=== PATIENT | male | born 1960 | race Caucasian/White ===

== ENCOUNTER 2023-04-13 09:28 | Outpatient (OUT) | payer BC, SELFPAY ==
[2023-04-13 10:06] LABS: Basophils Percent Auto 0.5 % (0.2-2.0); Eosinophils Absolute Auto 0.3 10^3/uL (0.0-0.7); Hematocrit 49.8 % (42.0-54.0); Hemoglobin 16.7 g/dL (14.0-18.0); Immature Granulocytes Abs Auto 0.06 10^3/uL (0.00-0.03); Immature Granulocytes Pct Auto 0.8 % (0.0-0.5); Lymphocytes Absolute Auto 2.9 10^3/uL (1.2-3.8); Lymphocytes Percent Auto 37.9 % (20.5-60.0); Mean Corpuscular HGB Conc 33.5 g/dL (29.9-35.2); Mean Corpuscular Hemoglobin 31.9 pg (25.9-34.0); Mean Platelet Volume 9.7 fL (9.5-13.5); Monocytes Absolute Auto 0.7 10^3/uL (0.3-0.8); Neutrophils Absolute Auto 3.6 10^3/uL (1.4-6.5); Neutrophils Percent Auto 47.8 % (43.0-75.0); Platelet Count 228 10^3/uL (150-450); Red Blood Count 5.24 10^6/uL (4.70-6.10); Red Cell Distribution Width 12.3 % (11.0-15.0); White Blood Count 7.5 10^3/uL (4.0-11.0)
[2023-04-13 11:06] LABS: Alanine Aminotransferase 47 U/L (16-63); Albumin Globulin Ratio 1.1; Albumin Level 3.9 g/dL (3.4-5.0); Alkaline Phosphatase 86 U/L (46-116); Anion Gap 13.9; Aspartate Amino Transferase 23 U/L (15-37); Bilirubin Total 1.4 mg/dL (0.2-1.0); Calcium 8.9 mg/dL (8.5-10.1); Carbon Dioxide 28.4 mmol/L (21.0-32.0); Chloride 104 mmol/L (98-107); Chol HDL Ratio 4.6; Cholesterol 208 mg/dL (<=200); Estimated GFR (African America >60 (>=60); Estimated GFR (Non-African Ame >60 (>=60); Free T3 3.24 pg/mL (2.18-3.98); Globulin 3.5 g/dL; Glucose 96 mg/dL (74-106); HDL Cholesterol 45 mg/dL (40-60); Potassium 4.3 mmol/L (3.5-5.1); Prostate Specific Antigen Scrn 1.11 ng/mL (<=4.00); Sodium 142 mmol/L (136-145); Thyroid Stimulating Hormone 2.702 uIU/mL (0.358-3.740); Total Protein 7.4 g/dL (6.4-8.2); Triglycerides 95 mg/dL (<=150)
[2023-04-13 11:19] LABS: Estimated Average Glucose 111 mg/dL; Glycohemoglobin A1C 5.5 % (4.5-6.2)
== END 2023-04-13 09:29 | disposition home or self-care (01) ==
PROVIDERS: PCP Family Medicine; Visit Provider Family Medicine
DX: Z00.00 Encounter for general adult medical examination without abnormal findings (principal); E78.5 Hyperlipidemia, unspecified; R73.09 Other abnormal glucose; Z12.5 Encounter for screening for malignant neoplasm of prostate
CPT/HCPCS: 36415; 80053; 80061; 83036; 84436; 84443; 84481; 85025; G0103

== ENCOUNTER 2023-05-03 12:35 | Outpatient (OUT) | payer BC, SELFPAY ==
--- OUTSIDE RECORDS SUMMARY | 2023-05-03 12:49 | XMS_ITS | CCD ---
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 Instructions DISCHARGE INSTRUCTIONS FOR ENDOSCOPY FOR COLONOSCOPY: -Expect a gassy or full feeling after a colonoscopy. Report any NEW abdominal pain or vomiting. FOR MARCIAL/EGD/ERCP/PEG: -Your throat may feel sore today from the scope that the doctor passed through your throat to visualize your stomach. Take a throat lozenge or suck on ice to ease the discomfort. -Do NOT smoke. FOR SEDATION FOR 24 HOURS: -NO driving -Do NOT operate machinery such as power tools, lawn mowers, snow blowers, sewing machines, etc. -Avoid alcoholic beverages and drugs for allergies, nerves, or sleep. -Do NOT stay alone. Do NOT leave your child unattended. -Do NOT make important personal or business decisions or sign any legal documents. -Eat solid foods and drink liquids in smaller amounts than usual until normal appetite returns. If you should experience an upset stomach, liquids high in sugar content (soda, Dmitry-aid, non-acid juices) are recommended. -You can resume normal activities tomorrow. FOLLOW UP Please call the office and make a follow up appointment to see me in 3 to 6 months Repeat colonoscopy in 10 years Pantoprazole 40 mg p.o. every morning -Notify the doctor if you have any problems. -Office number [phone] [facility] Work Phone: Summary Purpose Family History No Family History Records Found Relationship Condition Age at Onset Recorded Date/T bari Not Specified No pertinent family history Unknown Advance Directives No Advanced Directives Records Found Advance Directive Response Recorded Date/ Time Advance Directives No November 3:29pm Chief Complaint and Reason for Visit Chief Complaint GERD, Screening Reason for Visit GERD (gastroesophage al reflux disease) Additional Source Comments (unrecognized sect ion and content) No Status Records FoundNo Status Records FoundNo Status Records Found INFORMATION SOURCE (unrecogn ized section and content) DATE CREATED AUTHOR 06/28/2018 [facility] DATE CREATED AUTHOR AUTHOR'S ORGANIZ ATION 12/31/2021 [facility] DATE CREATED AUTHOR AUTHOR'S ORGANIZ ATION 05/05/2022 [facility] Care Teams (unrecognized sec tion and content) Team Status: Inactive Member Role Status Dates Jacque Antonio MD Primary Care Provider Active Skyler De La Torre MD Attending Provider Active Team Status: Active Member Role Status Dates Jacque Antonio MD Primary Care Provider Active FOR RECORDS PERTAINING TO PATIENTS WHO ARE OR HAVE BEEN ENROLLED IN A CHEMICAL DEPENDENCY/SUBSTANCEABUSE PROGRAM, SOME INFORMATION MAY BE OMITTED. This clinical summary was aggregated from multiple sources. Caution should be exercised in using it in the provision of clinical care. This summary normalizes information from multiple sources, and as a consequence, information in this document may materially change the coding, format and clinical context of patient data. In addition, data may be omitted in some cases. CLINICAL DECISIONS SHOULD BE BASED ON THE PRIMARY CLINICAL RECORDS. [employer] provides no warranty or guarantee of the accuracy or completeness of information in this document.
--- NOTE | 2023-05-03 13:28 | XR_ITS ---
The [address] [address] Patient Name: DOMINIC HERR MRN: [id number] date: 1960 Sex: M Assigned Patient Location: CARD Current Patient Location: CARD Accession/Order Number: [id number] Exam Date: 05/03/2023 13:30 Report Date: 05/03/2023 13:52 At the request of: JACQUE WINSTON Procedure: XR chest 2V EXAM: XR chest 2V HISTORY: Shortness Of Breath COMPARISON: None. TECHNIQUE: PA and lateral views of the chest. FINDINGS: The cardiomediastinal silhouette is normal. No focal consolidation is identified. There is no pneumothorax. No pleural effusion is noted. The osseous structures are intact. XR/XR chest 2V IMPRESSION: No acute cardiopulmonary process. Electronically authenticated by: CONSUELO ROLAND Date: 05/03/2023 13:52
--- NOTE | 2023-05-03 13:30 | RT_ITS ---
The [facility] Test Date: 2023-05-03 Pat Name: DOMINIC HERR Department: Room: - Gender: Male Tool Procurement Coordinator: Willis Montana RRT : 1960 Requested By: JACQUE WINSTON Order Number: [id number] Reading MD: Gurmeet Stein Interpretive Statements Pulmonary function testing was completed according to ATS criteria. Findings were considered accurate and reproducible. No bronchodilator was administered due to normal spirometric values. Spirometry: -FEV1/FVC: Normal @ 78% -FEV1: Normal @ 91% -FVC: Normal @ 89% Lung volumes by plethysmography: -RV: Reduced @ 64% -TLC: Normal @ 86% Diffusion capacity: -DLCO: Normal @ 92% when corrected for Hb 16.7g/dL Flow-volume loop: -Normal shape Impressions: -Technically normal PFT. If asthma remains in the differential, may consider methacholine challenge testing. Clinical correlation required. Electronically Signed On 05-08-2023 7:10:08 EST by Gurmeet Stein
== END 2023-05-03 12:36 | disposition home or self-care (01) ==
LOC: CARD 12:36
PROVIDERS: PCP Family Medicine; Visit Provider Family Medicine
DX: R06.02 Shortness of breath (principal)
CPT/HCPCS: 71046; 94010; 94726; 94729

== ENCOUNTER 2023-05-12 17:55 | Emergency (ER) | payer BC, SELFPAY ==
[2023-05-12] VITALS (8 sets, daily range): BP systolic 151–156; BP diastolic 83–95; PULSE 54–63; RESP 18–22; TEMP 36.6; O2SAT 92–96; BMI 29.0
--- OUTSIDE RECORDS SUMMARY | 2023-05-12 18:02 | XMS_ITS | CCD ---
Author Name Unknown Address [address] [facility] [address] [place] [address] Organization [facility] Care Team Providers Care Business Management Manager Name Role Phone PHYSICIAN, DEFAULT Admitting Unavailable [...] Unavailable MD Jacque Antonio Primary Care Provider [phone] MD Skyler De La Torre Attending Provider [...] Test Name Value Interpretation Reference Range Facility [facility] 04-27-2022 L ---- Specimen: [id number] Received: 04/27/22 Status: MIKIE Schmidosmar Num: [id number] Spec Type: Surgical Subm Dr: Skyler De La Torre MD Tissues: A Stomach - Biopsy/Polyp (ANTRAL BX) B Esophagus Biopsy (ESOPHAGEAL EROSION BX) Procedures: HE/4, Gross/Micro L4/2, GMS II Dark, AE1-AE3, H PYLORI Age/ Patient Sex Location Account Attending Physician TayoDominic Roshan 61/M [id number] Skyler De La Torre MD SPEC NUM: [id number] RECD: 04/27/22 STATUS: MIKIE VALDEZ NUM: [id number] ELGIN: 04/27/22- [facility] DR: Skyler De La Torre MD ENTERED: 04/27/[address] [facility] [address]: BULMARO TYPE: Surgical DEPT: S ORDERED: [...] submitted in one cassette labeled B1. Specimen: [id number] Received: 04/27/22 Status: MIKIE Valdez Num: [id number] Spec Type: Surgical Subm Dr: Skyler De La Torre MD Tissues: A Stomach - Biopsy/Polyp (ANTRAL BX) B Esophagus Biopsy (ESOPHAGEAL EROSION BX) Procedures: HE/4, Gross/Micro L4/2, GMS II Dark, AE1-AE3, H PYLORI Patient: rosendoDominic huffman [id number] (Continued) Specimen: [id number] Received: 04/27/22 (Continued) Signed (signature on file) Paula_ Willard Jain MD 05/01/22 1140 Specimen: [id number] Received: 04/27/22 Status: MIKIE Valdez Num: [id number] Spec Type: Surgical Subm Dr: Skyler De La Torre MD Tissues: A Stomach - Biopsy/Polyp (ANTRAL BX) B Esophagus Biopsy (ESOPHAGEAL EROSION BX) Procedures: HE/4, Gross/Micro L4/2, GMS II Dark, AE1-AE3, H PYLORI Patient: MarielosdanielDominic [id number] (Continued) Specimen: [id number] Received: 04/27/22 (Continued) Microscopic Description A. Two [...] characteristics were determined by the Laboratory of [facility]. Immunohistochemistry assays have not been validated on decalcified tissue. Results should be interpreted with caution given the possibility of false negative results on decalcified specimens. They have not been cleared by the US Food and Drug Administration. The FDA has determined that such clearance or approval is not necessary. CPT Codes 25087?2 (more content not included)... Normal [facility] INSULINon 12-28-2021 Insulin 18.0 uIU/mL Normal 2.6-24.9 [facility] Comment on above: Performed By: #### I NSULIN #### [facility] [address] [place] [address] Dr. Joesph Gaspar CBC AUTO DIFFon 12-27-2021 BASO # 0.1 103/ul Normal 0.0-0.1 [facility] Comment on above: Performed By: #### C BC #### [facility] [address] [place] [address] Dr. Joesph Gaspar Basophils/100 WBC (Bld) 0.7 % Normal 0.2-2.0 [facility] Comment on above: Performed By: #### C BC #### [facility] [address] [place] [address] Dr. Jeosph Gaspar EO # 0.2 103/ul Normal 0.0-0.7 [facility] Comment on above: Performed By: #### C BC #### [facility] [address] [place] [address] Dr. Joesph Gaspar Eosinophils/100 WBC (Bld) 3.3 % Normal 0.9-7.0 [facility] Comment on above: Performed By: #### C BC #### [facility] [address] [place] [address] Dr. Joesph Gaspar Erythrocyte distribution width (RBC) [Ratio] 12.2 % Normal 11.0-15.0 [facility] Comment on above: Performed By: #### C BC #### [facility] [address] [place] [address] Dr. Joesph Gaspar Hematocrit (Bld) [Volume fraction] 48.1 % Normal 42.0-54.0 [facility] Comment on above: Performed By: #### C BC #### [facility] [address] [place] [address] Dr. Joesph Gaspar Hemoglobin (Bld) [Mass/Vol] 16.6 g/dL Normal 14.0-18.0 [facility] Comment on above: Performed By: #### C BC #### [facility] [address] [place] [address] Dr. Joesph Gaspar IG # 0.02 10e3/ul Normal 0.00-0.03 [facility] Comment on above: Performed By: #### C BC #### [facility] [address] [place] [address] Dr. Joesph Gaspar IG % 0.3 % Normal 0.0-0.5 [facility] Comment on above: Performed By: #### C BC #### [facility] [address] [place] [address] Dr. Joesph Gaspar LYMPH # 2.3 103/ul Normal 1.2-3.8 [facility] Comment on above: Performed By: #### C BC #### [facility] [address] [place] [address] Dr. Joesph Gaspar Lymphocytes/100 WBC (Bld) 33.2 % Normal 20.5-60.0 [facility] Comment on above: Performed By: #### C BC #### [facility] [address] [place] [address] Dr. Joesph Gaspar MANUAL DIFF REQ NO Normal [facility] Comment on above: Performed By: #### C BC #### [facility] [address] [address] [address] Joesph Gaspar MCH (RBC) [Entitic mass] 32.4 pg Normal 25.9-34.0 [facility] Comment on above: Performed By: #### C BC #### [facility] [address] [place] [address] Dr. Joesph Gaspar MCHC (RBC) [Mass/Vol] 34.5 g/dL Normal 29.9-35.2 [facility] Comment on above: Performed By: #### C BC #### [facility] [address] [place] [address] Dr. Joesph Gaspar MCV (RBC) [Entitic vol] 93.8 fL Normal 80.0-94.0 [facility] Comment on above: Performed By: #### C BC #### [facility] [address] [place] [address] Dr. Joesph Gaspar MONO # 0.6 103/ul Normal 0.3-0.8 [facility] Comment on above: Performed By: #### C BC #### [facility] [address] [place] [address] Dr. Joesph Gaspar Monocytes/100 WBC (Bld) 8.4 % Normal 1.7-12.0 [facility] Comment on above: Performed By: #### C BC #### [facility] [address] [place] [address] Dr. Joesph Gaspar NEUT # 3.8 103/ul Normal 1.4-6.5 [facility] Comment on above: Performed By: #### C BC #### [facility] [address] [place] [address] Dr. Joesph Gaspar Neutrophils/100 WBC (Bld) 54.1 % Normal 43.0-75.0 [facility] Comment on above: Performed By: #### C BC #### [facility] [address] [place] [address] Dr. Joesph Gaspar Platelet mean volume (Bld) [Entitic vol] 9.1 fL Critically low 9.5-13.5 [facility] Comment on above: Performed By: #### C BC #### [facility] [address] [address] [address] Joesph Gaspar PLT 214 103/ul Normal 150-450 [facility] Comment on above: Performed By: #### C BC #### [facility] [address] [address] [address] Joesph Gaspar RBC 5.13 106/ul Normal 4.70-6.10 [facility] Comment on above: Performed By: #### C BC #### [facility] [address] [place] [address] Dr. Joesph Gaspar WBC 7.0 103/ul Normal 4.0-11.0 [facility] Comment on above: Performed By: #### C BC #### [facility] [address] [place] [address] Dr. Joesph Gaspar FREE THYROXINE INDEX T7on FTI 3.06 Normal 1.30-4.50 [facility] Comment on above: Performed By: #### C MP, TSH, LIPID, T7, URIC #### [facility] [address] [place] [address] Dr. Joesph Gaspar T3U 34.0 % Normal 33.0-40.0 [facility] Comment on above: Performed By: #### C MP, TSH, LIPID, T7, URIC #### [facility] [address] [place] [address] Dr. Joesph Gaspar T4 [Mass/Vol] 9.00 ug/dL Normal 4.50-12.10 [facility] Comment on above: Performed By: #### C MP, TSH, LIPID, T7, URIC #### [facility] [address] [place] [address] Dr. Joesph Gaspar GLYCOHEMOGLOBIN A1Con 2021 ADA RECOMMENDATION SEE BELOW Normal [facility] Comment on above: Result Comment: ADA RECOMMENDED LIMIT 4.0 - 6.0 ADA THERAPEUTIC TARGET < 7.0 ACTION SUGGESTED > 7.0 Performed By: #### A 1C #### [facility] [address] [place] [address] Dr. Joesph Gaspar Glucose [Mass/Vol] 108 mg/dL Normal [facility] Comment on above: Performed By: #### A 1C #### [facility] [address] [place] [address] Dr. Joesph Gaspar HbA1c (Bld) [Mass fraction] 5.4 % Normal 4.5-6.2 [facility] Comment on above: Performed By: #### A 1C #### [facility] [address] [place] [address] Dr. Joesph Gaspar LIPID PROFILEon 12-27-2021 CHOL-HDL RATIO NORM SEE BELOW Normal [facility] Comment on above: Result Comment: 3.3 - 4.4 LOW RISK 4.4 - 7.1 AVERAGE RISK 7.1 - 11.0 MODERATE RISK >11.0 HIGH RISK Performed By: #### C MP, TSH, LIPID, T7, URIC #### [facility] [address] [place] [address] Dr. Joesph Gaspar Cholesterol [Mass/Vol] 224 mg/dL Critically high <=200 [facility] Comment on above: Performed By: #### C MP, TSH, LIPID, T7, URIC #### [facility] [address] [address] [address] Joesph Gaspar Cholesterol in HDL [Mass/Vol] 48 mg/dL Normal 40-60 [facility] Comment on above: Performed By: #### C MP, TSH, LIPID, T7, URIC #### [facility] [address] [address] [address] Joesph Gaspar Cholesterol in LDL [Mass/Vol] 154.2 mg/dL Normal [facility] Comment on above: Performed By: #### C MP, TSH, LIPID, T7, URIC #### [facility] [address] [address] [address] Joesph Gaspar Cholesterol.total/C holesterol in HDL [Mass ratio] 4.7 {ratio} Normal [facility] Comment on above: Performed By: #### C MP, TSH, LIPID, T7, URIC #### [facility] [address] [place] [address] Dr. Joesph Gaspar HDL NORMAL > or = 60 mg/dl - LO W CARDIOVASCULAR RISK <40 mg/dl - HIGH CARDIOVASCULAR RISK Normal [facility] Comment on above: Performed By: #### C MP, TSH, LIPID, T7, URIC #### [facility] [address] [address] [address] Joesph Gaspar LDL CALC NORMAL SEE BELOW Normal [facility] Comment on above: Result Comment: <100 mg/dl OPTIMAL 100 - 129 mg/dl NEAR OR ABOVE OPTIMAL 130 - 159 mg/dl BORDERLINE HIGH 160 - 189 mg/dl HIGH >190 mg/dl VERY HIGH Performed By: #### C MP, TSH, LIPID, T7, URIC #### [facility] [address] [address] [address] Joesph Gaspar Triglyceride [Mass/Vol] 109 mg/dL Normal <=150 [facility] Comment on above: Performed By: #### C MP, TSH, LIPID, T7, URIC #### [facility] [address] [address] [address] Joesph Gaspar VLDL CALC 21.8 mg/dL Normal [facility] Comment on above: Performed By: #### C MP, TSH, LIPID, T7, URIC #### [facility] [address] [address] [address] Joesph Gaspar PROF 14(COMP METB)on 022 Albumin [Mass/Vol] 3.9 g/dL Normal 3.4-5.0 [facility] Comment on above: Performed By: #### C MP, TSH, LIPID, T7, URIC #### [facility] [address] [address] [address] Joesph Gaspar Albumin/Globulin [Mass ratio] 1.1 {ratio} Normal [facility] Comment on above: Performed By: #### C MP, TSH, LIPID, T7, URIC #### [facility] [address] [address] [address] Joesph Gaspar ALP [Catalytic activity/Vol] 88 U/L Normal 46-116 [facility] Comment on above: Performed By: #### C MP, TSH, LIPID, T7, URIC #### [facility] [address] [address] [address] Joesph Gaspar ALT [Catalytic activity/Vol] 52 U/L Normal 16-63 [facility] Comment on above: Performed By: #### C MP, TSH, LIPID, T7, URIC #### [facility] [address] [place] [address] Dr. Joesph Gaspar Anion gap [Moles/Vol] 11.7 mmol/L Normal [facility] Comment on above: Performed By: #### C MP, TSH, LIPID, T7, URIC #### [facility] [address] [address] [address] Joesph Gaspar AST [Catalytic activity/Vol] 19 U/L Normal 15-37 [facility] Comment on above: Performed By: #### C MP, TSH, LIPID, T7, URIC #### [facility] [address] [place] [address] Dr. Joesph Gaspar Bilirubin [Mass/Vol] 1.0 mg/dL Normal 0.2-1.0 [facility] Comment on above: Performed By: #### C MP, TSH, LIPID, T7, URIC #### [facility] [address] [address] [address] Joesph Gaspar Calcium [Mass/Vol] 8.9 mg/dL Normal 8.5-10.1 [facility] Comment on above: Performed By: #### C MP, TSH, LIPID, T7, URIC #### [facility] [address] [address] [address] Joesph Gaspar Chloride [Moles/Vol] 104 mmol/L Normal 98-107 [facility] Comment on above: Performed By: #### C MP, TSH, LIPID, T7, URIC #### [facility] [address] [address] [address] Joesph Gaspar CO2 [Moles/Vol] 28.8 mmol/L Normal 21.0-32.0 [facility] Comment on above: Performed By: #### C MP, TSH, LIPID, T7, URIC #### [facility] [address] [address] [address] Joesph Gaspar Creatinine [Mass/Vol] 0.93 mg/dL Normal 0.70-1.30 [facility] Comment on above: Performed By: #### C MP, TSH, LIPID, T7, URIC #### [facility] [address] [place] [address] Dr. Joesph Gaspar EGFR-AF SAUDI ARABIAN >60 Normal >=60 [facility] Comment on above: Performed By: #### C MP, TSH, LIPID, T7, URIC #### [facility] [address] [place] [address] Dr. Joesph Gaspar EGFR-NON AF SAUDI ARABIAN >60 Normal >=60 [facility] Comment on above: Performed By: #### C MP, TSH, LIPID, T7, URIC #### [facility] [address] [place] [address] Dr. Joesph Gaspar Globulin (S) [Mass/Vol] 3.4 g/dL Normal [facility] Comment on above: Performed By: #### C MP, TSH, LIPID, T7, URIC #### [facility] [address] [place] [address] Dr. Joesph Gaspar Glucose [Mass/Vol] 86 mg/dL Normal 74-106 [facility] Comment on above: Performed By: #### C MP, TSH, LIPID, T7, URIC #### [facility] [address] [place] [address] Dr. Joesph Gaspar Potassium [Moles/Vol] 4.5 mmol/L Normal 3.5-5.1 [facility] Comment on above: Performed By: #### C MP, TSH, LIPID, T7, URIC #### [facility] [address] [place] [address] Dr. Joesph Gaspar Protein [Mass/Vol] 7.3 g/dL Normal 6.4-8.2 [facility] Comment on above: Performed By: #### C MP, TSH, LIPID, T7, URIC #### [facility] [address] [place] [address] Dr. Joesph Gaspar Sodium [Moles/Vol] 140 mmol/L Normal 136-145 [facility] Comment on above: Performed By: #### C MP, TSH, LIPID, T7, URIC #### [facility] [address] [place] [address] Dr. Joesph Gaspar Urea nitrogen [Mass/Vol] 19.0 mg/dL Critically high 7.0-18.0 [facility] Comment on above: Performed By: #### C MP, TSH, LIPID, T7, URIC #### [facility] [address] [place] [address] Dr. Joesph Gaspar Urea nitrogen/Creatinine [Mass ratio] 20.4 mg/mg Normal [facility] Comment on above: Performed By: #### C MP, TSH, LIPID, T7, URIC #### [facility] [address] [place] [address] Dr. Joesph Gaspar TSHon 12-27-2021 TSH 2.064 uIU/mL Normal 0.358-3.740 [facility] Comment on above: Performed By: #### C MP, TSH, LIPID, T7, URIC #### [facility] [address] [place] [address] Dr. Joesph Gaspar URIC ACID SERUMon 12-27-2021 Urate [Mass/Vol] 6.1 mg/dL Normal 3.5-7.2 [facility] Comment on above: Performed By: #### C MP, TSH, LIPID, T7, URIC #### [facility] [address] [place] [address] Dr. Joesph Gaspar SACRUM COCCYXon 06-25-2018 SACRUM COCCYX [facility] Department of Radiology [address] [place] [phone] == Patient Name: DOMINIC HERR : 1960 Sex: M Age: Race: White Pt. Location: Patient Status: O Ordered Date: 06/25/2018 9:00:00 AM Completed Date: 06/25/2018 09:05 AM Requesting Provider: ESAU LEE Attending Provider: ESAU LEE Report Copy To: Signs & Symptoms: S32.2XXA Fracture of coccyx, initial encounter for closed fracture I10 History: Nancy Comments: , , , Ordering Provider - [...] fracture of the coccyx. Electronically signed by:Kaye Gutirérez. Transcribed by: [email or web address], User Resident: Electronically Signed by: KAYE GUTIÉRREZ @ 06/25/2018 03:09 PM Normal [facility] Comment on above: Order Comment: , , = ========= , Ordering Provider - ESAU LEE MD , SACRUM COCCYXon 02-06-2018 SACRUM COCCYX [facility] Department of Radiology [address] [place] [phone] == Patient Name: DOMINIC HERR : [...] findings. Electronically signed by:Kaye Gutiérrez. Transcribed by: [email or web address], User Resident: SILVESTRE KEARNEY Electronically Signed by: KAYE GUTIÉRREZ @ 02/06/2018 10:25 PM I personally read this/these film(s) with this resident Normal [facility] Comment on above: Order Comment: , Vie ws (X-RAY, SACRUM AND COCCYX): Radiologic Protocol , Views (X-RAY, SACRUM AND COCCYX): Radiologic Protocol , , , Ordering Provider - ESAU LEE MD , Vital Signs Date Time Vital Sign Value Performing Clinician Jamesi johny 04-27-2022 09:30-0500 Diastolic blood pressure 89 mm[Hg] MD Jacque Antonio Work Phone: [facility] 04-27-2022 09:30-0500 Heart rate 59 /min MD Jacque Antonio Work Phone: [facility] 04-27-2022 09:30-0500 Respiratory rate 20 /min MD Jacque Antonio Work Phone: [facility] 04-27-2022 09:30-0500 SaO2% (BldA) [Mass fraction] 100 % MD Jacque Antonio Work Phone: [facility] 04-27-2022 09:30-0500 Systolic blood pressure 130 mm[Hg] MD Jacque Antonio Work Phone: [facility] 04-27-2022 06:50-0500 Body height 182.88 cm MD Jacque Antonio Work Phone: [facility] 04-27-2022 06:50-0500 Body temperature 98 [degF] MD Jacque Antonio Work Phone: [facility] 04-27-2022 06:50-0500 Body weight 99.79 kg MD Jacque Antonio Work Phone: [facility] Encounters Encounter Date Encounter Type Care Provider Facility Start: 04-27-2022 End: 04-27-2022 ambulatory Jacque Antonio Facility:[facility] Start: 04-27-2022 End: 04-27-2022 Admission to same day surgery center MD Jacque Antonio Work Phone: [facility] Work Phone: Start: 04-27-2022 End: 04-27-2022 ambulatory MD Jacque Antonio Work Phone: [facility] Work Phone: Start: 12-31-2021 Encounter for genera l adult medical examination without abnormal findings DR JACQUE ANTONIO [facility] Start: 12-27-2021 End: 12-28-[address] JACQUE ANTONIO Facility:[facility] Start: 12-27-2021 End: 12-28-2021 Encounter for general adult medical examination without abnormal findings DR JACQUE ANTONIO Facility:[facility] Start: 06-25-2018 End: 06-26-2018 Patient encounter procedure ESAU LEE Facility:[facility] Start: 02-06-2018 End: 02-07-2018 Patient encounter procedure ESAU SHANITWILA Facility:[facility] Start: 01-08-2018 End: 01-09-2018 Patient encounter procedure DEFAULT PHYSICIAN Facility:[facility] Procedures Date Procedure Procedure Detail Performing Clinician Start: 04-27-2022 Esophagogastroduodenoscopy MD Jacque Antonio Work Phone: Start: 12-27-[address] ROBERT ANTONIO Comment on above: Performed By: #### [facility] #### [facility] [address] [place] [address] Dr. Joesph Gaspar Plan of Treatment Date Care Activity Detail Author Start: 04-27-2022 [facility] Payers Date Payer Category Payer Self-pay [id number] Private Health Insurance [id number] 1960 Unknown [id number] 1960 Unknown [id number] [id number] [id number] 1960 Unknown [id number] [id number] [id number] 1960 Unknown [id number] 2.16.84 [id number] 1958 Unknown [id number] Unknown Unknown [id number] 2.16.8 [id number] Social History Date Type Detail Facility Tobacco smoking stat [facility] Unknown if ever smoked [facility] Work Phone: Start: 1960 Sex Assigned At Male [facility] Goals Date Patient Goal Desired Activity /State Procedure note 04-27-2022 Note Date & Type Note Facility 04-27-2022 Procedure note [facility] Evaluation note Note Date & Type Note Facility Evaluation note Diagnosis Onset Date GERD (gastroesophageal reflux disease) acute [facility] Work Phone: Hospital Discharge instructions Note Date [...] if you have any problems. -Office number [phone] [facility] Work Phone: Summary Purpose Family History No [...] section and content) DATE CREATED AUTHOR 06/28/2018 [facility] DATE CREATED AUTHOR AUTHOR'S ORGANIZ ATION 12/31/2021 [facility] DATE CREATED AUTHOR AUTHOR'S ORGANIZ ATION 05/05/2022 [facility] Care Teams (unrecognized sec tion and content) [...] BE BASED ON THE PRIMARY CLINICAL RECORDS. [employer] provides no warranty or guarantee of the accuracy or completeness of information in this document.
--- NOTE | 2023-05-12 18:08 | XR_ITS ---
The [address] [address] Patient Name: DOMNIIC HERR MRN: [id number] date: 1960 Sex: M Assigned Patient Location: ER Current Patient Location: ED.MAIN Accession/Order Number: [id number] Exam Date: 05/12/2023 18:16 Report Date: 05/12/2023 19:10 At the request of: GILBERT MEJIA Procedure: XR chest 1V EXAM: XR chest 1V HISTORY: Cough COMPARISON: None. TECHNIQUE: Single view of the chest FINDINGS: Heart size normal. No focal consolidation, pleural effusion, pulmonary congestion or pneumothorax. XR/XR chest 1V IMPRESSION: No acute findings. Electronically authenticated by: MAMADOU SALINAS Date: 05/12/2023 19:10
--- NOTE | 2023-05-12 18:09 | ED.GENADUL1 ---
HPI - General Adult General Chief complaint: Shortness of Breath/Dyspnea Stated complaint: Shortness of Breath, Cough, Wheezing Time Seen by Provider: 05/12/23 17:56 Source: patient Mode of arrival: walk-in History of Present Illness HPI narrative: Patient is a 62-year-old male who presents to the emergency department for the evaluation of chest congestion, wheezing and more difficulty breathing. He has been having intermittent upper respiratory/viral symptoms for several weeks and was seen by his PCP With pulmonary function testing performed. He states the last several days he has had an increase in wheezing, chest congestion. 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 He has not had any fevers, hemoptysis, chest pain, peripheral edema. He is sitting comfortably, speaking and breathing easily at time of initial interview. He states he was placed on an albuterol inhaler for his symptoms and has been using that intermittently over the last several days with some improvement.He denies tobacco abuse. He has not been on any courses of steroids or antibiotics for his symptoms. Related Data Previous Rx's Medication Instructions Recorded sskjniiivcnsrwu-mkkmseqrzbpzony-BM 10 ml PO Q6H PRN cold symptoms 05/12/23 2 mg-30 mg-10 mg/5 mL oral syrup #200 mL (Bromfed DM) cefdinir 300 mg capsule 300 mg PO BID 10 days #20 caps 05/12/23 prednisone 20 mg tablet See Rx Instructions .Route 05/12/23 .COMPLEX #12 tabs Allergies Allergy/AdvReac Type Severity Reaction Status Date / Time No Known Drug Allergies Allergy Verified 05/12/23 18:03 Review of Systems ROS Constitutional Denies: fever or chills Ears, nose, mouth, and throat Reports: nasal congestion; Denies: throat pain Cardiovascular Denies: chest pain Respiratory Reports: shortness of breath, cough, wheezing and chest congestion; Denies: change in phlegm color or coughing up blood Gastrointestinal Denies: nausea or vomiting Musculoskeletal Denies: back pain or neck pain Integumentary/Breast Denies: rash Neurological Denies: headache PFSH PFS Social History Smoking status: Never smoker Exam Narrative Exam Narrative: Gen.: Awake, alert, in no distress Head: Normocephalic, atraumatic ENT: Moist mucous membranes Respiratory: No respiratory distress, Inspiratory and expiratory wheezing globally, patient speaks in full sentences Cardio: Regular rate and rhythm Extremities: Moves extremities equally, no pedal edema Psych: Normal mood and affect Neuro: No focal neuro deficit Skin: Warm, dry, intact Constitutional Vital Signs, click to edit/add: Last Vital Signs Temp 97.8 F 05/12/23 17:58 Pulse 54 L 05/12/23 18:33 Resp 18 05/12/23 18:33 BP 156/95 H 05/12/23 17:58 Pulse Ox 96 05/12/23 18:13 O2 Del Method Room Air 05/12/23 18:13 Course Vital Signs Vital signs: Vital Signs Temperature 97.8 F 05/12/23 17:58 Pulse Rate 63 05/12/23 17:58 Respiratory Rate 18 05/12/23 17:58 Blood Pressure 156/95 H 05/12/23 17:58 Pulse Oximetry 96 05/12/23 17:58 Oxygen Delivery Method Room Air 05/12/23 17:58 Temperature 97.8 F 05/12/23 17:58 Pulse Rate 54 L 05/12/23 18:33 Respiratory Rate 18 05/12/23 18:33 Blood Pressure 156/95 H 05/12/23 17:58 Pulse Oximetry 96 05/12/23 18:13 Oxygen Delivery Method Room Air 05/12/23 18:13 Medical Decision Making MDM Narrative Medical decision making narrative: Patient with stable vital signs, no hypoxia or tachycardia. Viral testing is negative and chest x-ray is stable, patient with significant reactive airway disease, treated with steroids and breathing treatment in the ER. He is discharged home on prednisone, Bromfed-DM, cefdinir. Follow-up with PCP and return to the emergency department if symptoms change or worsen. Patient was also given information for pulmonology if needed. He was reevaluated by attending physician prior to discharge. He has no complaints of rizwan chest pain, hemoptysis. He appears well-hydrated and nontoxic Medical Records Medical records reviewed: Yes I reviewed the patient's medical records Lab Data Lab results reviewed: Yes I reviewed the patient's lab results Labs: Lab Results 05/12/23 Range/Units 18:09 Influenza Type A Ag Negative Influenza Type B Ag Negative SARS-CoV-2 Ag (CV2AG) Negative (NEGATIVE) Imaging Data Chest x-ray: Attestation: I have reviewed the pertinent imaging results. Discharge Plan Discharge Stand Alone Forms: Portal Instructions Chief Complaint: Shortness of Breath/Dyspnea Clinical Impression: Acute bronchitis Patient Disposition: Home, Self-Care Time of Disposition Decision: 18:45 Condition: Good Prescriptions / Home Meds: New prednisone 20 mg tablet See Rx Instructions .ROUTE .COMPLEX Qty: 12 0RF Rx Instructions: 3 tabs daily for 2 days, then 2 tabs daily for 2 days, then 1 tab daily for 2 days fpqojjawgwhlsgn-runoddjeb-NL [Bromfed DM] 2-30-10 mg/5 mL syrup 10 ml PO Q6H PRN (Reason: cold symptoms) Qty: 200 0RF cefdinir 300 mg capsule 300 mg PO BID 10 Days Qty: 20 0RF Instructions: Acute Bronchitis (ED) Referrals: Elías Antonio MD [Primary Care Provider] - 1 week Gurmeet Stein DO [Physician] - 1 week
[2023-05-12] MEDS: METHYLPREDNISOLONE SOD SUCC PF 125 MG/2 ML VIAL IM (18:19)
[2023-05-12 18:28] LABS: Influenza Virus A Antigen Negative; Influenza Virus B Antigen Negative; Internal Control Within Normal Limits; SARS-CoV-2 Ag NEGATIVE (NEGATIVE)
[2023-05-12] MEDS: IPRATROPIUM/ALBUTEROL SULFATE 3 ML AMPUL.NEB IH (18:29)
[2023-05-12] MEDS: CEFDINIR 300 MG CAPSULE PO (19:02)
== END 2023-05-12 19:05 | disposition home or self-care (01) ==
PROVIDERS: Physician Assistant; Emergency Provider Emergency Medicine; PCP Family Medicine
DX: J20.9 Acute bronchitis, unspecified (principal); Z20.822 Contact with and (suspected) exposure to COVID-19
CPT/HCPCS: 71045; 87804; 87811; 94640; 96374; 99285; J2930

== ENCOUNTER 2023-05-27 08:40 | Outpatient (OUT) | payer BC, SELFPAY ==
--- OUTSIDE RECORDS SUMMARY | 2023-05-27 08:58 | XMS_ITS | CCD ---
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 Role Phone PHYSICIAN, DEFAULT Admitting Unavailable PHYSICIAN, DEFAULT Attending Unavailable EBRAHEIM, ESAU Admitting Unavailable EBRAHEIM, ESAU Attending Unavailable UNKNOWN, PHYSICIAN Referring Unavailable UNKNOWN, PHYSICIAN Primary Care Unavailable EBRAHEIM, ESAU Admitting Unavailable EBRAHEIM, ESAU Attending Unavailable UNKNOWN, PHYSICIAN Referring Unavailable UNKNOWN, PHYSICIAN Primary Care Unavailable TISH, DR SANTILLAN Attending Unavailable TISH, DR SANTILLAN Consulting Unavailable DR JACQUE ANTONIO Primary Care Unavailable TISH, DR SANTILLAN Admitting Unavailable MD Jacque Antonio Primary Care Provider MD Skyler De La Torre Attending Provider [phone] Jacque Antonio Primary Care Unavailable Skyler De [...] Test Name Value Interpretation Reference Range Facility [facility] 04-27-2022 L ---- Specimen: [id number] Received: 04/27/22 Status: MIKIE Schmidosmar Num: [id number] Spec Type: Surgical Subm Dr: Skyler De La Torre MD Tissues: A Stomach - Biopsy/Polyp (ANTRAL BX) B Esophagus Biopsy (ESOPHAGEAL EROSION BX) Procedures: HE/4, Gross/Micro L4/2, GMS II Dark, AE1-AE3, H PYLORI Age/ Patient Sex Location Account Attending Physician Dominic Herr 61/M [id number] Skyler De La Torre MD SPEC NUM: [id number] RECD: 04/27/22 STATUS: MIKIE VALDEZ NUM: [id number] ELGIN: 04/27/22- [facility] DR: Skyler De La Torre MD ENTERED: 04/27/22 [facility] DR: BULMARO TYPE: Surgical DEPT: S ORDERED: [...] submitted in one cassette labeled B1. Specimen: [id number] Received: 04/27/22 Status: MIKIE Valdez Num: [id number] Spec Type: Surgical Subm Dr: Skyler De La Torre MD Tissues: A Stomach - Biopsy/Polyp (ANTRAL BX) B Esophagus Biopsy (ESOPHAGEAL EROSION BX) Procedures: HE/4, Gross/Micro L4/2, GMS II Dark, AE1-AE3, H PYLORI Patient: TayoDominic Islas [id number] (Continued) Specimen: [id number] Received: 04/27/22 (Continued) Signed (signature on file) Willard Jain MD 05/01/22 1140 Specimen: [id number] Received: 04/27/22 Status: MIKIE Valdez Num: [id number] Spec Type: Surgical Subm Dr: Skyler De La Torre MD Tissues: A Stomach - Biopsy/Polyp (ANTRAL BX) B Esophagus Biopsy (ESOPHAGEAL EROSION BX) Procedures: HE/4, Gross/Micro L4/2, GMS II Dark, AE1-AE3, H PYLORI Patient: Dominic Herr [id number] (Continued) Specimen: [id number] Received: 04/27/22 (Continued) Microscopic Description A. Two [...] characteristics were determined by the [facility] of [facility]. Immunohistochemistry assays have not been validated on decalcified tissue. Results should be interpreted with caution given the possibility of false negative results on decalcified specimens. They have not been cleared by the US Food and Drug Administration. The FDA has determined that such clearance or approval is not necessary. CPT Codes 99643?2 (more content not included)... Normal [facility] INSULINon 12-28-2021 Insulin 18.0 uIU/mL Normal 2.6-24.9 [facility] Comment on above: Performed By: #### I NSULIN #### [facility] [address] [place] [address] Dr. Joesph Gaspar CBC AUTO DIFFon 12-27-2021 BASO # 0.1 103/ul Normal 0.0-0.1 [facility] Comment on above: Performed By: #### C BC #### [facility] [address] [place] [address] Dr. Joesph Gaspar Basophils/100 WBC (Bld) 0.7 % Normal 0.2-2.0 [facility] Comment on above: Performed By: #### C BC #### [facility] [address] [place] [address] Dr. Joesph Gaspar EO # 0.2 103/ul Normal 0.0-0.7 [facility] Comment on above: Performed By: #### C BC #### [facility] [address] [place] [address] Dr. Joesph Gaspar Eosinophils/100 WBC (Bld) 3.3 % Normal 0.9-7.0 [facility] Comment on above: Performed By: #### C BC #### [facility] [address] [place] [address] Dr. Joesph Gaspar Erythrocyte distribution width (RBC) [Ratio] 12.2 % Normal 11.0-15.0 [facility] Comment on above: Performed By: #### C BC #### [facility] [address] [place] [address] Dr. Joesph Gaspar Hematocrit (Bld) [Volume fraction] 48.1 % Normal 42.0-54.0 [facility] Comment on above: Performed By: #### C BC #### [facility] [address] [place] [address] Dr. Joesph Gaspar Hemoglobin (Bld) [Mass/Vol] 16.6 g/dL Normal 14.0-18.0 [facility] Comment on above: Performed By: #### C BC #### [facility] [address] [place] [address] Dr. Joesph Gaspar IG # 0.02 10e3/ul Normal 0.00-0.03 [facility] Comment on above: Performed By: #### C BC #### [facility] [address] [place] [address] Dr. Joesph Gaspar IG % 0.3 % Normal 0.0-0.5 [facility] Comment on above: Performed By: #### C BC #### [facility] [address] [place] [address] Dr. Joesph Gaspar LYMPH # 2.3 103/ul Normal 1.2-3.8 [facility] Comment on above: Performed By: #### C BC #### [facility] [address] [place] [address] Dr. Joesph Gaspar Lymphocytes/100 WBC (Bld) 33.2 % Normal 20.5-60.0 [facility] Comment on above: Performed By: #### C BC #### [facility] [address] [place] [address] Dr. Joesph Gaspar MANUAL DIFF REQ NO Normal [facility] Comment on above: Performed By: #### C BC #### [facility] [address] [place] [address] Dr. Joesph Gaspar MCH (RBC) [Entitic mass] 32.4 pg Normal 25.9-34.0 [facility] Comment on above: Performed By: #### C BC #### [facility] [address] [place] [address] Dr. Joesph Gaspar MCHC (RBC) [Mass/Vol] 34.5 g/dL Normal 29.9-35.2 [facility] Comment on above: Performed By: #### C BC #### [facility] [address] [place] [address] Dr. Joesph Gaspar MCV (RBC) [Entitic vol] 93.8 fL Normal 80.0-94.0 [facility] Comment on above: Performed By: #### C BC #### [facility] [address] [place] [address] Dr. Joesph Gaspar MONO # 0.6 103/ul Normal 0.3-0.8 [facility] Comment on above: Performed By: #### C BC #### [facility] [address] [place] [address] Dr. Joesph Gaspar Monocytes/100 WBC (Bld) 8.4 % Normal 1.7-12.0 [facility] Comment on above: Performed By: #### C BC #### [facility] [address] [place] [address] Dr. Joesph Gaspar NEUT # 3.8 103/ul Normal 1.4-6.5 [facility] Comment on above: Performed By: #### C BC #### [facility] [address] [place] [address] Dr. Joesph Gaspar Neutrophils/100 WBC (Bld) 54.1 % Normal 43.0-75.0 [facility] Comment on above: Performed By: #### C BC #### [facility] [address] [place] [address] Dr. Joesph Gaspar Platelet mean volume (Bld) [Entitic vol] 9.1 fL Critically low 9.5-13.5 [facility] Comment on above: Performed By: #### C BC #### [facility] [address] [address] [address] Joesph Gaspar PLT 214 103/ul Normal 150-450 [facility] Comment on above: Performed By: #### C BC #### [facility] [address] [place] [address] Dr. Joesph Gaspar RBC 5.13 106/ul Normal 4.70-6.10 [facility] Comment on above: Performed By: #### C BC #### [facility] [address] [place] [address] Dr. Joesph Gaspar WBC 7.0 103/ul Normal 4.0-11.0 [facility] Comment on above: Performed By: #### C BC #### [facility] [address] [place] [address] Dr. Joesph Gaspar FREE THYROXINE INDEX T7on FTI 3.06 Normal 1.30-4.50 [facility] Comment on above: Performed By: #### C MP, TSH, LIPID, T7, URIC #### [facility] [address] [place] [address] Dr. Joesph Gaspar T3U 34.0 % Normal 33.0-40.0 [facility] Comment on above: Performed By: #### C MP, TSH, LIPID, T7, URIC #### [facility] [address] [place] [address] Dr. Joesph Gaspar T4 [Mass/Vol] 9.00 ug/dL Normal 4.50-12.10 [facility] Comment on above: Performed By: #### C MP, TSH, LIPID, T7, URIC #### [facility] [address] [place] [address] Dr. Joesph Gaspar GLYCOHEMOGLOBIN A1Con 2021 ADA RECOMMENDATION SEE BELOW Normal [facility] Comment on above: Result Comment: ADA RECOMMENDED LIMIT 4.0 - 6.0 ADA THERAPEUTIC TARGET < 7.0 ACTION SUGGESTED > 7.0 Performed By: #### A 1C #### [facility] [address] [place] [address] Dr. Joesph Gaspar Glucose [Mass/Vol] 108 mg/dL Normal [facility] Comment on above: Performed By: #### A 1C #### [facility] [address] [address] [address] Joesph Gaspar HbA1c (Bld) [Mass fraction] 5.4 % Normal 4.5-6.2 [facility] Comment on above: Performed By: #### A 1C #### [facility] [address] [address] [address] Joesph Gaspar LIPID PROFILEon 12-27-2021 CHOL-HDL RATIO NORM SEE BELOW Normal [facility] Comment on above: Result Comment: 3.3 - 4.4 LOW RISK 4.4 - 7.1 AVERAGE RISK 7.1 - 11.0 MODERATE RISK >11.0 HIGH RISK Performed By: #### C MP, TSH, LIPID, T7, URIC #### [facility] [address] [address] [address] Joesph Gaspar Cholesterol [Mass/Vol] 224 mg/dL Critically high <=200 [facility] Comment on above: Performed By: #### C MP, TSH, LIPID, T7, URIC #### [facility] [address] [address] [address] Joesph Gaspar Cholesterol in HDL [Mass/Vol] 48 mg/dL Normal 40-60 [facility] Comment on above: Performed By: #### C MP, TSH, LIPID, T7, URIC #### [facility] [address] [address] [address] Joesph Gaspar Cholesterol in LDL [Mass/Vol] 154.2 mg/dL Normal [facility] Comment on above: Performed By: #### C MP, TSH, LIPID, T7, URIC #### [facility] [address] [address] [address] Joesph Gaspar Cholesterol.total/C holesterol in HDL [Mass ratio] 4.7 {ratio} Normal [facility] Comment on above: Performed By: #### C MP, TSH, LIPID, T7, URIC #### [facility] [address] [address] [address] Joesph Gaspar HDL NORMAL > or = 60 mg/dl - LO W CARDIOVASCULAR RISK <40 mg/dl - HIGH CARDIOVASCULAR RISK Normal [facility] Comment on above: Performed By: #### C MP, TSH, LIPID, T7, URIC #### [facility] [address] [address] [address] Joesph Gaspar LDL CALC NORMAL SEE BELOW Normal [facility] Comment on above: Result Comment: <100 mg/dl OPTIMAL 100 - 129 mg/dl NEAR OR ABOVE OPTIMAL 130 - 159 mg/dl BORDERLINE HIGH 160 - 189 mg/dl HIGH >190 mg/dl VERY HIGH Performed By: #### C MP, TSH, LIPID, T7, URIC #### [facility] [address] [address] [address] Joesph Gaspar Triglyceride [Mass/Vol] 109 mg/dL Normal <=150 [facility] Comment on above: Performed By: #### C MP, TSH, LIPID, T7, URIC #### [facility] [address] [address] [address] Joesph Gaspar VLDL CALC 21.8 mg/dL Normal [facility] Comment on above: Performed By: #### C MP, TSH, LIPID, T7, URIC #### [facility] [address] [address] [address] Joesph Gaspar PROF 14(COMP METB)on 022 Albumin [Mass/Vol] 3.9 g/dL Normal 3.4-5.0 [facility] Comment on above: Performed By: #### C MP, TSH, LIPID, T7, URIC #### [facility] [address] [address] [address] Joesph Gaspar Albumin/Globulin [Mass ratio] 1.1 {ratio} Normal [facility] Comment on above: Performed By: #### C MP, TSH, LIPID, T7, URIC #### [facility] [address] [address] [address] Joesph Gaspar ALP [Catalytic activity/Vol] 88 U/L Normal 46-116 [facility] Comment on above: Performed By: #### C MP, TSH, LIPID, T7, URIC #### [facility] [address] [address] [address] Joesph Gaspar ALT [Catalytic activity/Vol] 52 U/L Normal 16-63 [facility] Comment on above: Performed By: #### C MP, TSH, LIPID, T7, URIC #### [facility] [address] [place] [address] Dr. Joesph Gaspar Anion gap [Moles/Vol] 11.7 mmol/L Normal [facility] Comment on above: Performed By: #### C MP, TSH, LIPID, T7, URIC #### [facility] [address] [place] [address] Dr. Joesph Gaspar AST [Catalytic activity/Vol] 19 U/L Normal 15-37 [facility] Comment on above: Performed By: #### C MP, TSH, LIPID, T7, URIC #### [facility] [address] [place] [address] Dr. Joesph Gaspar Bilirubin [Mass/Vol] 1.0 mg/dL Normal 0.2-1.0 [facility] Comment on above: Performed By: #### C MP, TSH, LIPID, T7, URIC #### [facility] [address] [place] [address] Dr. Joesph Gaspar Calcium [Mass/Vol] 8.9 mg/dL Normal 8.5-10.1 [facility] Comment on above: Performed By: #### C MP, TSH, LIPID, T7, URIC #### [facility] [address] [place] [address] Dr. Joesph Gaspar Chloride [Moles/Vol] 104 mmol/L Normal 98-107 [facility] Comment on above: Performed By: #### C MP, TSH, LIPID, T7, URIC #### [facility] [address] [place] [address] Dr. Joesph Gaspar CO2 [Moles/Vol] 28.8 mmol/L Normal 21.0-32.0 [facility] Comment on above: Performed By: #### C MP, TSH, LIPID, T7, URIC #### [facility] [address] [place] [address] Dr. Joesph Gaspar Creatinine [Mass/Vol] 0.93 mg/dL Normal 0.70-1.30 [facility] Comment on above: Performed By: #### C MP, TSH, LIPID, T7, URIC #### [facility] [address] [address] [address] Joesph Gaspar EGFR-AF CENTRAL AFRICAN >60 Normal >=60 [facility] Comment on above: Performed By: #### C MP, TSH, LIPID, T7, URIC #### [facility] [address] [address] [address] Joesph Gaspar EGFR-NON AF CENTRAL AFRICAN >60 Normal >=60 [facility] Comment on above: Performed By: #### C MP, TSH, LIPID, T7, URIC #### [facility] [address] [address] [address] Joesph Gaspar Globulin (S) [Mass/Vol] 3.4 g/dL Normal [facility] Comment on above: Performed By: #### C MP, TSH, LIPID, T7, URIC #### [facility] [address] [place] [address] Dr. Joesph Gaspar Glucose [Mass/Vol] 86 mg/dL Normal 74-106 [facility] Comment on above: Performed By: #### C MP, TSH, LIPID, T7, URIC #### [facility] [address] [address] [address] Joesph Gaspar Potassium [Moles/Vol] 4.5 mmol/L Normal 3.5-5.1 [facility] Comment on above: Performed By: #### C MP, TSH, LIPID, T7, URIC #### [facility] [address] [address] [address] Joesph Gaspar Protein [Mass/Vol] 7.3 g/dL Normal 6.4-8.[address] [facility] Comment on above: Performed By: #### C MP, TSH, LIPID, T7, URIC #### [facility] [address] [place] [address] Dr. Joesph Gaspar Sodium [Moles/Vol] 140 mmol/L Normal 136-145 [facility] Comment on above: Performed By: #### C MP, TSH, LIPID, T7, URIC #### [facility] [address] [place] [address] Dr. Joesph Gaspar Urea nitrogen [Mass/Vol] 19.0 mg/dL Critically high 7.0-18.0 [facility] Comment on above: Performed By: #### C MP, TSH, LIPID, T7, URIC #### [facility] [address] [address] [address] Joesph Gaspar Urea nitrogen/Creatinine [Mass ratio] 20.4 mg/mg Normal [facility] Comment on above: Performed By: #### C MP, TSH, LIPID, T7, URIC #### [facility] [address] [address] [address] Joesph Gaspar TSHon 12-27-2021 TSH 2.064 uIU/mL Normal 0.358-3.740 [facility] Comment on above: Performed By: #### C MP, TSH, LIPID, T7, URIC #### [facility] [address] [place] [address] Dr. Joesph Gaspar URIC ACID SERUMon 12-27-2021 Urate [Mass/Vol] 6.1 mg/dL Normal 3.5-7.2 [facility] Comment on above: Performed By: #### C MP, TSH, LIPID, T7, URIC #### [facility] [address] [address] [address] Joesph Gaspar SACRUM COCCYXon 06-25-2018 SACRUM COCCYX [facility] Department of Radiology [address] [place] [phone] == Patient Name: DOMINIC HERR : 1960 Sex: M Age: Race: White Pt. Location: Patient Status: O Ordered Date: 06/25/2018 9:00:00 AM Completed Date: 06/25/2018 09:05 AM Requesting Provider: ESAU LEE Attending Provider: ESAU LEE Report Copy To: Signs & Symptoms: S32.2XXA Fracture of coccyx, initial encounter for closed fracture I10 History: [place] Comments: , , , Ordering Provider - [...] coccyx. Electronically signed by:Kaye Gutiérrez. Transcribed by: [email or web address], User Resident: Electronically Signed by: KAYE GUTIÉRREZ @ 06/25/2018 03:09 PM Normal [facility] Comment on above: Order Comment: , , = ========= , Ordering Provider - ESAU LEE MD , SACRUM COCCYXon 02-06-2018 SACRUM COCCYX [facility] Department of Radiology [address] [place] [phone] == Patient Name: DOMINIC HERR : 1960 Sex: M Age: Race: White Pt. Location: 84 Patient Status: Ordered Date: 02/06/2018 9:00:00 AM Completed Date: 02/06/2018 09:03 AM Requesting Provider: ESAU LEE Attending Provider: Report Copy To: Signs & Symptoms: S32.2XXA Fracture of coccyx, initial encounter for closed fracture I10 History: [place] Comments: , Views (X-RAY, SACRUM AND COCCYX): [...] findings. Electronically signed by:Kaye Gutiérrez. Transcribed by: [email or web address], User Resident: SILVESTRE KEARNEY Electronically Signed by: KAYE GUTIÉRREZ @ 02/06/2018 10:25 PM I personally read this/these film(s) with this resident Normal [facility] Comment on above: Order Comment: , Vie ws (X-RAY, SACRUM AND COCCYX): Radiologic Protocol , Views (X-RAY, SACRUM AND COCCYX): Radiologic Protocol , , , Ordering Provider - ESAU LEE MD , Vital Signs Date Time Vital Sign Value Performing Clinician Faci lity 04-27-2022 09:30-0500 Diastolic blood pressure 89 mm[Hg] MD Jacque Antonio Work Phone: [facility] 04-27-2022 09:30-0500 Heart rate 59 /min MD Jacque Antonio Work Phone: [facility] 04-27-2022 09:30-0500 Respiratory rate 20 /min MD Jacque Antonio Work Phone: [facility] 04-27-2022 09:30-0500 SaO2% (BldA) [Mass fraction] 100 % MD Jacque Antonio Work Phone: [facility] 04-27-2022 09:30-0500 Systolic blood pressure 130 mm[Hg] MD Jacque Antonio Work Phone: [facility] 04-27-2022 06:50-0500 Body height 182.88 cm MD Jacque Antonio Work Phone: [facility] 04-27-2022 06:50-0500 Body temperature 98 [degF] MD Jacque Antonio Work Phone: [facility] 04-27-2022 06:50-0500 Body weight 99.79 kg MD Jacque Antonio Work Phone: [facility] Encounters Encounter Date Encounter Type Care Provider Facility Start: 04-27-2022 End: 04-27-2022 ambulatory Jacque Antonio Facility:[facility] Start: 04-27-2022 End: 04-27-2022 Admission to same day surgery center MD Jacque Antonio Work Phone: [facility] Work Phone: Start: 04-27-2022 End: 04-27-2022 ambulatory MD Jacque Antonio Work Phone: [facility] Work Phone: Start: 12-31-2021 Encounter for genera l adult medical examination without abnormal findings DR JACQUE ANTONIO [facility] Start: 12-27-2021 End: 12-28-[address] JACQUE ANTONIO Facility: Start: 12-27-2021 End: 12-28-2021 Encounter for general adult medical examination without abnormal findings DR JACQUE ANTONIO Facility: Start: 06-25-2018 End: 06-26-2018 Patient encounter procedure ESAU EBTWILA Facility:[facility] Start: 02-06-2018 End: 02-07-2018 Patient encounter procedure ESAU EBTWILA Facility:[facility] Start: 01-08-2018 End: 01-09-2018 Patient encounter procedure DEFAULT PHYSICIAN Facility:[facility] Procedures Date Procedure Procedure Detail Performing Clinician Start: 04-27-2022 Esophagogastroduodenoscopy MD Jacque Antonio Work Phone: Start: 12-27-[address] ROBERT ANTONIO Comment on above: Performed By: #### P [facility] #### [facility] [address] [place] [address] Dr. Joesph Gaspar Plan of Treatment Date Care Activity Detail Author Start: 04-27-2022 [facility] Payers Date Payer Category Payer Self-pay [id number] Private Health Insurance [id number] 1960 Unknown [id number] [id number] [id number] 1960 Unknown [id number] [id number] [id number] 1960 Unknown [id number] 2.16.8 [id number] 1960 Unknown [id number] 2.16.84 [id number] 1958 Unknown [id number] Unknown Unknown [id number] 2.16.8 [id number] Social History Date Type Detail Facility Tobacco smoking stat [facility] Unknown if ever smoked [facility] Work Phone: Start: 1960 Sex Assigned At Male [facility] Goals Date Patient Goal Desired Activity /State Procedure note 04-27-2022 Note Date & Type Note Facility 04-27-2022 Procedure note [facility] Evaluation note Note Date & Type Note Facility Evaluation note Diagnosis Onset Date GERD (gastroesophageal reflux disease) acute [facility] Work Phone: Hospital Discharge instructions Note Date [...] if you have any problems. -Office number [phone] [facility] Work Phone: Summary Purpose Family History [...] section and content) DATE CREATED AUTHOR 06/28/2018 [facility] DATE CREATED AUTHOR AUTHOR'S ORGANIZ ATION 12/31/2021 [facility] DATE CREATED AUTHOR AUTHOR'S ORGANIZ ATION 05/05/2022 [facility] Care Teams (unrecognized sec tion and [...] BE BASED ON THE PRIMARY CLINICAL RECORDS. [employer] provides no warranty or guarantee of the accuracy or completeness of information in this document.
--- NOTE | 2023-05-27 09:00 | CA_ITS ---
Patient Name: DOMINIC HERR MR#: [id number] : 1960 Exam Date: 05/27/2023 Ordering Doctor: DR Elías Antonio . ECHOCARDIOGRAM REPORT PROCEDURE: CA ECHO DOPPLER COMPLETE INDICATIONS: Shortness of breath COMPARISON: None. DESCRIPTION: COMPLETE ECHOCARDIOGRAM Real-time transthoracic echocardiography with 2D, M-mode, spectral and color flow Doppler performed. QUALITY: Technical quality was good. 72 , 220#, BSA 2.22 m2, BP 120/70 LEFT VENTRICLE: Normal chamber size. Normal left ventricular wall thickness. Normal systolic function. LV EF: Normal left ventricular ejection fraction, (55%). DIASTOLIC: Normal diastolic function. ATRIAL SEPTUM: Visually appears intact. LEFT ATRIUM: Normal chamber size. RIGHT ATRIUM: Normal chamber size. RIGHT VENTRICLE: Normal chamber size. Normal right ventricular systolic function. TRICUSPID VALVE: Normal mobility and thickness. No stenosis with trivial regurgitation. No evidence of pulmonary hypertension. RVSP 24 mmHg MITRAL VALVE: Normal mobility and thickness. No evidence of mitral valve stenosis. There is no mitral annular calcification. Trivial mitral regurgitation. AORTIC VALVE: Normal trileaflet appearance. Normal leaflet mobility. No evidence of aortic valve stenosis. Multifocal calcifications. No aortic regurgitation. AORTIC ROOT: Mildly dilated measuring 4.1 cm. The ascending aorta is normal in diameter and appearance, measuring 3.7 cm. PULMONIC VALVE: Normal thickness and mobility. No stenosis. Mild regurgitation. PERICARDIUM: No evidence of pericardial effusion. IVC: Collapses with inspirations. IVC is normal in size. PLEURA: CONCLUSION: 1. The left ventricle is normal in size and exhibits normal systolic function. LVEF is 55%. 2. Normal right ventricular size and systolic function. 3. No significant valvular dysfunction. 4. Normal diastolic function. 5. Normal right-sided pressures. 6. Mildly dilated aortic root measuring 4.1 cm. Adult Echocardiography Procedure Report Left Ventricle LVEDD (3.7 - 5.6 cm): 5.17 cm LVESD (2.2 - 4.0 cm): 3.82 cm LVIVS thickness (0.6 - 1.2 cm): 1.13 cm LVPW thickness (0.5 - 1.0 cm): 0.98 cm e': 0.11 m/s E - e': 4.89 LVOT Max Gradient: 4.32 mm[Hg] LVOT Area (cm2): 1.04 m/s Peak Velocity (LVOT): 1.04 m/s Mean Velocity (LVOT): 0.70 m/s LVOT Diameter 2.28 cm Left Atrium LA Volume Index (2D A2C): 29.93 ml/m2 Left Atrium Systolic Dimension: 4.20 cm Mitral Valve MV E to A Ratio: 1.13 Mitral Valve A-Wave Peak Velocity: 0.49 m/s Mitral Valve E-Wave Peak Velocity: 0.55 m/s Right Ventricle Aorta AO Root Diam: 4.09 cm Ascending Ao Diam: 3.72 cm Aortic Valve AoV Area (Peak Christian): 3.50 cm2, 3.50 cm2 AoV Area (VTI): 3.73 cm2, 3.73 cm2 Peak Velocity(Antegrade Flow): 1.21 m/s Peak Gradient(Antegrade Flow): 5.88 mm[Hg] Mean Velocity(Antegrade Flow): 0.83 m/s Mean Gradient(Antegrade Flow): 3.15 mm[Hg] Velocity Time Integral: 24.74 cm Tricuspid Valve Peak Velocity (Regurgitant Flow): 2.31 m/s Pulmonic Valve Peak Velocity: 0.95 m/s Peak Gradient: 3.63 mm[Hg], 3.57 mm[Hg] Right Atrium Right Atrium Systolic Pressure: 37.98 ml, 37.98 ml Dictated by: Migue Thomas M.D. on 05/27/2023 at 15:39 Approved by: Migue Thomas M.D. on 05/27/2023 at 15:43
[2023-05-27 09:07] LABS: Estimated GFR (African America >60 (>=60); Estimated GFR (Non-African Ame >60 (>=60)
--- NOTE | 2023-05-27 10:06 | CT_ITS ---
[address] [address] Patient Name: DOMINIC HERR MRN: [id number] date: 1960 Sex: M Assigned Patient Location: LAB Current Patient Location: LAB Accession/Order Number: [id number] Exam Date: 05/27/2023 09:50 Report Date: 05/27/2023 13:56 At the request of: JACQUE WINSTON Procedure: CT angio chest EXAMINATION: CT angio chest HISTORY: shortness of breath R06.02, wheezing R06.2 COMPARISON: No relevant comparison available. TECHNIQUE: Multi-planar CT images were created with IV contrast. Axial, Coronal, and Sagittal images. Dose reduction techniques were achieved by using automated exposure control and/or adjustment of mA and/or kV according to patient size and/or use of iterative reconstruction technique. FINDINGS: LUNGS: No visible pulmonary disease. PLEURA: No mass, effusion, or pneumothorax. VASCULATURE: Normal opacification of the central pulmonary arterial tree with no filling defect to suggest a central pulmonary embolus GEGE: No mass or adenopathy. MEDIASTINUM: No mass or adenopathy. CARDIAC: No enlargement, pericardial thickening, or significant calcification. AORTA: No aneurysm or dissection. CHEST WALL: No mass or axillary adenopathy. BONES: No bone lesion or fracture. LIMITED ABDOMEN: No suspicious findings. Limited images of the upper abdomen. OTHER: Negative. CT/CT angio chest IMPRESSION: No central pulmonary thromboembolic disease Clear lungs Electronically authenticated by: BRANDEN DOUGLASS Date: 05/27/2023 13:56
== END 2023-05-27 08:41 | disposition home or self-care (01) ==
LOC: LAB 08:40
PROVIDERS: PCP Family Medicine; Visit Provider Family Medicine
DX: R06.02 Shortness of breath (principal); Z01.812 Encounter for preprocedural laboratory examination; R06.2 Wheezing; R05.3 Chronic cough
CPT/HCPCS: 36415; 71275; 82565; 93306; Q9967